=== PATIENT | male | born 1960 | race Caucasian/White ===

== ENCOUNTER 2017-02-10 10:39 | Emergency (ER) | payer OTHER, BC ==
--- NOTE | 2017-02-10 10:59 | PDOC ---
History of Present Illness - General History Source: Patient <Lazaro Bermudez - Last Filed: 02/10/17 12:31> - History of Present Illness Initial Comments: 02/11/17 18:28 56 y.o male who presents to the emergency room with a wooden splinter in his right index finger which he partially removed. <Lisa Kothari - Last Filed: 02/11/17 18:32> - General Chief Complaint: Foreign Body (FB) Stated Complaint: SPLINTER RIGHT INDEX FINGER Time Seen by Provider: 02/10/17 10:47 Past History - Past Medical History HTN: Yes Hypercholesterolemia: Yes - Suicide/Smoking/Psychosocial Hx Smoking History: Former smoker Hx Alcohol Use: Yes (occasional) Drug/Substance Use Hx: No Substance Use Type: None <Lazaro Bermudez - Last Filed: 02/10/17 12:31> <Lisa Kothari - Last Filed: 02/11/17 18:32> - Past Medical History Allergies/Adverse Reactions: Allergies Allergy/AdvReac Type Severity Reaction Status Date / Time Penicillins Allergy Verified 02/10/17 10:51 Home Medications: Ambulatory Orders Atorvastatin Ca [Lipitor] 5 mg PO HS 03/09/14 Standard-3/Dha/Epa/Fish Oil [Fish Oil 500 mg Softgel] 1 each PO DAILY 02/10/17 Sulfamethoxazole/Trimethoprim [Bactrim Ds Tablet] 1 each PO BID #14 tablet 02/10 Tapentadol HCl [Nucynta] 50 mg PO DAILY PRN 02/10/17 Review of Systems - Review of Systems Able to Perform ROS?: Yes Comments:: 02/11/17 18:28 CONSTITUTIONAL: Absent: fever, no chills, no fatigue EYES: Absent: visual changes ENT: Absent: ear pain, no sore throat CARDIOVASCULAR: Absent: chest pain, no palpitations RESPIRATORY: Absent: cough, no SOB GI: Absent: abdominal pain, no nausea, no vomiting, no constipation, no diarrhea GENITOURINARY: Absent: dysuria, no frequency, no hematuria MUSCULOSKELETAL: Absent: back pain, no arthralgia, no myalgia SKIN: +wooden splinter in the right index finger Absent: rash <Lisa Kothari - Last Filed: 02/11/17 18:32> *Physical Exam - Vital Signs Last Vital Signs Temp Pulse Resp BP Pulse Ox 97.8 F 81 16 159/103 100 02/10/17 10:45 02/10/17 10:45 02/10/17 10:45 02/10/17 12:00 02/10/17 10:45 - Physical Exam Comments: 02/11/17 18:29 GENERAL: Well-appearing, well-nourished. No apparent distress. HEENT: Normocephalic, atraumatic. PERRL, EOM intact. CARDIOVASCULAR: Normal S1, S2. Regular rate and rhythm. PULMONARY: Clear to auscultation bilaterally. ABDOMEN: Soft, non-distended, non-tender. RIGHT HAND: +there is a small laceration on the right index finger, but no foreign body present. Full ROM. SKIN: Warm, dry. No rash NEUROLOGICAL: No focal neurological deficits. <Lisa Kothari - Last Filed: 02/11/17 18:32> ED Treatment Course - Medications Given in the ED: ED Medications Discontinued Medications Generic Name Dose Route Start Last Admin Trade Name Freq PRN Reason Stop Dose Admin Trimethoprim/Sulfamethoxazole 1 each 02/10/17 12:30 02/10/17 12:36 Bactrim Ds - PO 02/10/17 12:31 1 each ONCE ONE Administration <Lisa Kothari - Last Filed: 02/11/17 18:32> Medical Decision Making - Medical Decision Making 02/11/17 18:30 Xray was negative for fracture or foreign body. The patient was advised to attempt to removed the splinter, but chose to take antibiotics and follow up with one of our hand specialist. Patient will be discharged home <Lisa Kothari - Last Filed: 02/11/17 18:32> *DC/Admit/Observation/Transfer <Lazaro Bermudez S - Last Filed: 02/10/17 12:31> <Lisa Kothari - Last Filed: 02/11/17 18:32> Diagnosis at time of Disposition: Puncture wound of finger Qualifiers: Encounter type: initial encounter Qualified Code(s): S61.239A - Puncture wound without foreign body of unspecified finger without damage to nail, initial encounter - Discharge Dispostion Disposition: HOME Condition at time of disposition: Good - Prescriptions Prescriptions: Sulfamethoxazole/Trimethoprim [Bactrim Ds Tablet] 1 each PO BID #14 tablet - Referrals Referrals: Mario Robles [Primary Care Provider] - Rachid Wolfe MD [Staff Physician] - - Patient Instructions Additional Instructions: Daily atbc as prescribed, avoid presssure , follow up with your hand specialist - Post Discharge Activity
[2017-02-10 11:00] VITALS: PULSE 81; TEMP 97.8; BMI 34.0
[2017-02-10 12:00] VITALS: BP 159/103
[2017-02-10] MEDS ORDERED: SULFAMETHOXAZOLE/TRIMETHOPRIM 800MG/160MG D.S. TABLET PO ONE (12:30)
[2017-02-10] MEDS ORDERED: SULFAMETHOXAZOLE/TRIMETHOPRIM 800MG/160MG D.S. TABLET ONE (12:35)
== END 2017-02-10 12:39 | disposition home or self-care (01) ==
LOC: FER 10:39
DX: S61.239A Puncture wound without foreign body of unspecified finger without damage to nail, initial encounter (principal); X58.XXXA Exposure to other specified factors, initial encounter; Y93.89 Activity, other specified; Y92.9 Unspecified place or not applicable; I10 Essential (primary) hypertension; Z87.891 Personal history of nicotine dependence
CPT/HCPCS: 73140-TC-RT; 99281-25

== ENCOUNTER 2020-06-26 15:07 | Emergency (ER) | payer OTHER, BC ==
[2020-06-26 15:27] VITALS: BP 156/98; PULSE 81; TEMP 98.4; BMI 32.5
== END 2020-06-26 16:06 | disposition home or self-care (01) ==
LOC: FER 15:07
DX: S46.311A Strain of muscle, fascia and tendon of triceps, right arm, initial encounter (principal)
CPT/HCPCS: 99283-25